=== PATIENT | male | born 2000 | race Caucasian/White ===

== ENCOUNTER 2022-01-10 17:13 | Emergency (ER) | payer BC, SELFPAY ==
[2022-01-10 17:36] VITALS: BP 130/72; PULSE 75; RESP 18; TEMP 36.9; O2SAT 100
--- NOTE | 2022-01-10 17:55 | ED.SKABFB ---
HPI - Skin/Abscess/Foreign Bdy General Chief complaint: Wound/Laceration Stated complaint: rt leg swollen Time Seen by Provider: 01/10/22 17:27 Source: patient and family (mother) Mode of arrival: ambulatory Limitations: no limitations History of Present Illness HPI narrative: 21-year-old male presents to [facility] with complaints of unspecified open wound to his right lower leg surrounded by erythema for the past week. Patient reports he has been picking at the area. Patient reports he has noticed white and yellow-colored drainage coming from the area. Patient denies fever, bodies, chills, nausea, vomiting or diarrhea. Onset (ago): week(s) (1) Location: [facility] Associated symptoms: denies other symptoms Treatments prior to arrival: bandages and attempted to drain pus at home Related Data Allergies Allergy/AdvReac Type Severity Reaction Status Date / Time amoxicillin AdvReac Mild Nausea and Verified 01/10/22 17:52 Vomiting POTASSIUM CLAVULANATE AdvReac Mild Nausea and Uncoded 01/10/22 17:52 Vomiting Review of Systems Constitutional: Constitutional: Denies chills, Denies fever(s) and Denies weakness Cardiovascular: Cardiovascular: Denies chest pain Respiratory: Respiratory: Denies cough, Denies dyspnea and Denies wheezing Gastrointestinal: Gastrointestinal: Denies abdominal pain, Denies diarrhea, Denies nausea and Denies vomiting Integumentary/Breasts: Comments: Open wound to right lower leg Neurologic: Denies dizziness PMFSH Social History Social History (Updated 01/10/22 @ 17:57 by Alia Walker, [employer]) Smoking status: Current every day smoker Tobacco type: e-cigarettes/vaping Comments At time of signature, I agree with nursing past medical, surgical, social and family history. There is no relevant family history pertinent to the presenting complaint. Exam Const: General: no acute distress Nutritional Appearance: well nourished Orientation/consciousness: patient oriented x3 Neck: Neck: normal visual inspection Resp: Effort & Inspection: normal respiratory effort Auscultation: clear to auscultation bilaterally Cardio: Rate: regular rate Rhythm: regular rhythm Skin: General skin exam: normal color Other: There is a 1 cm open wound noted to right stanley with 6 cm of surrounding erythema. There is scant amount of purulent drainage noted. There is no necrotic tissue, bruising or bleeding noted. Neuro: General: patient oriented x3 and moves all extremities Speech: normal speech Extrem: General: no clubbing, cyanosis or edema and no pedal edema Psych: Mental Status: mental status grossly normal Affect: normal affect Attitude: cooperative Thought content: Yes Normal thought content present Course Course Level of Care: Express Care Visit Vital Signs Vital signs: Vital Signs Temperature 36.9 C 01/10/22 17:36 Pulse Rate 75 01/10/22 17:36 Respiratory Rate 18 01/10/22 17:36 Blood Pressure 130/72 01/10/22 17:36 Pulse Oximetry 100 01/10/22 17:36 Temperature 36.9 C 01/10/22 17:36 Pulse Rate 75 01/10/22 17:36 Respiratory Rate 18 01/10/22 17:36 Blood Pressure 130/72 01/10/22 17:36 Pulse Oximetry 100 01/10/22 17:36 MDM - Skin/Abscess/Foreign Bdy MDM Narrative Medical decision making narrative: Lengthy discussion with patient concerning importance of avoiding expressing and picking the area of the wound. Informed patient he must take antibiotic as prescribed. Inform mother and patient importance of monitoring symptoms closely and mother agrees to proceed to the emergency room if symptoms worsen Differential Diagnosis Differential diagnosis: Likely abscess of skin or subcutaneous tissue, viral exanthem and urticaria Critical Care Time Critical Care Time Critical Care Time: No Discharge Plan Discharge Clinical Impression: Cellulitis of leg, right, Unspecified open wound, right lower leg, initial encounter Patient Disposition: Home, Self-Care Co
--- NOTE | 2022-01-10 18:27 | PC.NURSE ---
1800- triple abx oint and kerlix applied
== END 2022-01-10 18:04 | disposition home or self-care (01) ==
PROVIDERS: Emergency Provider Nurse Practitioner Family
DX: L03.115 Cellulitis of right lower limb (principal); S81.801A Unspecified open wound, right lower leg, initial encounter; X58.XXXA Exposure to other specified factors, initial encounter; F17.290 Nicotine dependence, other tobacco product, uncomplicated
CPT/HCPCS: 87070; 87147; 87181; 87186; 87205; 99213; G0463

== ENCOUNTER 2023-03-23 17:30 | Emergency (ER) | payer BC, SELFPAY ==
[2023-03-23 17:49] VITALS: BP 131/67; PULSE 72; RESP 16; TEMP 36.9; O2SAT 100
--- NOTE | 2023-03-23 17:54 | ED.SKABFB ---
HPI - Skin/Abscess/Foreign Bdy General Chief complaint: Skin/Abscess/Foreign Body Stated complaint: wasp sting Time Seen by Provider: 03/23/23 17:54 Source: patient Mode of arrival: ambulatory Limitations: no limitations History of Present Illness HPI narrative: Patient is a 22-year-old male who presents with wasp sting to left thumb and left ulnar aspect of hand yesterday. Patient states he used to have severe reactions to bee stings and is concerned. Patient states he washed hands thoroughly and has taken Benadryl with moderate relief. Patient denies any pain, drainage from wounds, stiffness or numbness or tingling of hand. Patient states it is just swollen. Related Data Allergies Allergy/AdvReac Type Severity Reaction Status Date / Time amoxicillin AdvReac Intermediate Nausea and Verified 03/23/23 17:49 Vomiting POTASSIUM CLAVULANATE AdvReac Intermediate Nausea and Uncoded 03/23/23 17:49 Vomiting Review of Systems Review of Systems: All systems reviewed & are unremarkable except as noted in HPI and below Constitutional: Constitutional: Denies body ache(s), Denies chills, Denies fatigue, Denies fever(s), Denies headache(s), Denies malaise and Denies weakness Eyes: Eyes: Denies blurry vision, Denies irritation and Denies loss of vision ENT: Denies otalgia, Denies headache(s), Denies nasal discharge, Denies sinus pain and Denies sore throat Cardiovascular: Cardiovascular: Denies chest pain, Denies irregular heart rhythm and Denies dyspnea Respiratory: Respiratory: Denies dyspnea Gastrointestinal: Gastrointestinal: Denies abdominal pain, Denies melena, Denies hematochezia, Denies diarrhea, Denies nausea and Denies vomiting Musculoskeletal: Musculoskeletal: Denies back pain, Denies myalgias and Denies arthralgias Integumentary/Breasts: Skin/Breast: Reports swelling, Denies pruritus, Reports lesions and Denies rash Neurologic: Denies headache(s), Denies loss of vision and Denies weakness Psychiatric: Psychiatric: Reports no additional psychiatric complaints Endocrine: Endocrine: Denies fatigue [facility] Social History Social History (Updated 01/10/22 @ 17:57 by Alia Walker, FREDY) Smoking status: Current every day smoker Tobacco type: e-cigarettes/vaping Comments At time of signature, agree with nursing past medical, surgical, social and family history. There is no relevant family history pertinent to the presenting complaint. Exam Const: General: cooperative, healthy appearing, comfortable, no acute distress and well nourished Nutritional Appearance: well nourished Orientation/consciousness: patient oriented x3 Limitations: no limitations HENMT: Head: normal to inspection, normocephalic and atraumatic Ears: hearing grossly normal bilaterally and external ears normal Face/Nose/Sinus: Normal external nose present, normal facial exam and face symmetric Face and sinus: normal facial exam and face symmetric Mouth: Yes lip normal Eyes: General: appearance normal, both eyes and all related structures Alignment and Position: alignment normal and position normal Periorbital: periorbital findings normal Eyelids: eyelids normal Pupils: Equal, round and reactive pupils present EOM: EOMs intact bilaterally Neck: Neck: normal visual inspection, full ROM and supple Chest: Chest palpation & inspection: normal inspection of the chest Resp: Effort & Inspection: normal respiratory effort and able to speak in complete sentences Auscultation: clear to auscultation bilaterally Cardio: Rate: regular rate Rhythm: regular rhythm Heart sounds: S1 normal heart sound present and S2 normal heart sound present GI: Inspection: normal to inspection Skin: General skin exam: normal color and no rashes or lesions noted Neuro: General: patient oriented x3 and moves all extremities Cranial nerves: Yes Equal, round and reactive pupils present Speech: normal speech Gait exam (Neuro): Normal gait present Extrem: Gener
== END 2023-03-23 18:05 | disposition home or self-care (01) ==
PROVIDERS: Emergency Provider Nurse Practitioner Family
DX: T63.461A Toxic effect of venom of wasps, accidental (unintentional), initial encounter (principal); L03.114 Cellulitis of left upper limb; F17.290 Nicotine dependence, other tobacco product, uncomplicated
CPT/HCPCS: 99213; G0463

== ENCOUNTER 2024-04-27 22:58 | Emergency (ER) | payer BC, SELFPAY ==
[2024-04-27 23:05] VITALS: BP 135/70; PULSE 73; RESP 18; TEMP 36.9; O2SAT 100
--- NOTE | 2024-04-27 23:22 | ED.WOUNDLAC ---
HPI - Wound/Laceration General Chief Complaint: Wound/Laceration Stated Complaint: laceration Time Seen by Provider: 04/27/24 23:05 Source: patient Mode of arrival: ambulatory Limitations: no limitations History of Present Illness HPI narrative: Patient is a 23-year-old male who presents the ED with report of a laceration to his left thigh. Patient reports he was using a sawzall to cut an object when the saw slipped and patient sustained a small laceration to his L inner thigh. Denies any other injuries. Denies numbness. Tetanus unknown. Related Data Allergies Allergy/AdvReac Type Severity Reaction Status Date / Time amoxicillin AdvReac Intermediate Nausea and Verified 03/23/23 17:49 Vomiting POTASSIUM CLAVULANATE AdvReac Intermediate Nausea and Uncoded 03/23/23 17:49 Vomiting Review of Systems Review of Systems: CONSTITUTIONAL: Denies fever, chills, or sweats. SKIN: See HPI MUSCULOSKELETAL: Denies back pain, extremity pain, myalgia. All systems reviewed & are unremarkable except as noted in HPI and below PMFSH Social History Social History Smoking status: Current every day smoker Tobacco type: e-cigarettes/vaping Exam Narrative: GENERAL: Well appearing, obese with BMI of 33.7, non-toxic, in no acute distress. HEAD: Normocephalic, atraumatic. RESPIRATORY: Airway patent, respirations nonlabored CARDIOVASCULAR: Regular rate and rhythm MUSCULOSKELETAL: Moves all extremities. No gross deformities. SKIN: Warm, dry, normal color. Small linear 1 cm laceration to left distal medial thigh, minimal active bleeding. Sensation intact. NEURO: A&O X3. Speech clear. PSYCHIATRIC: Appropriate mood and affect. Normal interaction. Course Vital Signs Vital signs: Vital Signs Temperature 98.4 F 04/27/24 23:05 Pulse Rate 73 04/27/24 23:05 Respiratory Rate 18 04/27/24 23:05 Blood Pressure 135/70 04/27/24 23:05 Pulse Oximetry 100 04/27/24 23:05 Temperature 98.4 F 04/27/24 23:05 Pulse Rate 73 04/27/24 23:05 Respiratory Rate 18 04/27/24 23:05 Blood Pressure 135/70 04/27/24 23:05 Pulse Oximetry 100 04/27/24 23:05 Procedures Laceration Laceration 1: Date: 04/27/24 Time: 23:40 Site: lower extremity Side (If applicable): left Size (cm): 1.5 Description: linear Depth: simple, single layer Local Anesthetic: lidocaine 1% Amount of anesthesia used (mL): 4 Pre-repair: wound explored and irrigated ====== Skin Level ====== Skin layer closed with: nylon Size (cm): 4-0 Number of sutures: 3 Technique: simple, interrupted ====== Subcutaneous Layer ====== ====== Muscle Layer ====== ====== Tendon Layer ====== MDM - Wound/Laceration MDM Narrative Medical decision making narrative: Laceration repaired without complications. Tetanus updated. Patient will be discharged. Given wound care instructions and reasons to return. D/C in stable condition. Medical Records Attestation: I reviewed the patient's medical records. Discharge Plan Discharge Clinical Impression: Laceration of left thigh Qualifiers: Encounter type: initial encounter Qualified Code(s): S71.112A - Laceration without foreign body, left thigh, initial encounter Patient Disposition: Home, Self-Care Condition: Stable Instructions: Antibiotic Form, Care For Your Stitches (ED), Laceration (ED) Additional Instructions: Return to the ED or visit an urgent care or your PCP for follow-up and wound check/suture removal in 7-10 days. Keep the wound dry for 24 hours. You may remove the bandage after 24 hours and wash with simple soap and water, but do not scrub. Return to the ED if you experience uncontrolled bleeding, fever, chills, pus-like drainage, or redness/swelling/warmth surrounding the wound, as these could be signs o
[2024-04-27] MEDS: TETANUS,DIPHTHERIA,AC PERTUSSIS ADULT (0.5 ML) BOOSTRIX IM (23:48)
== END 2024-04-27 23:54 | disposition home or self-care (01) ==
PROVIDERS: Emergency Provider Physician Assistant
DX: S71.112A Laceration without foreign body, left thigh, initial encounter (principal); F17.290 Nicotine dependence, other tobacco product, uncomplicated; W29.8XXA Contact with other powered hand tools and household machinery, initial encounter; Z23 Encounter for immunization
CPT/HCPCS: 12001; 90471; 90715; 99282

== ENCOUNTER 2024-08-07 08:46 | Emergency (ER) | payer BC, SELFPAY ==
[2024-08-07 09:12] VITALS: BP 119/72; PULSE 83; RESP 18; TEMP 36.4; O2SAT 98
--- NOTE | 2024-08-07 09:33 | ED.GENADULT ---
HPI - General Adult General Chief complaint: Upper Respiratory Infection Stated complaint: coughing/headache/cold flashes Time Seen by Provider: 08/07/24 09:33 Source: patient Mode of arrival: ambulatory Limitations: no limitations History of Present Illness HPI narrative: 23-year-old male patient presents to [facility] with complaints of coughing headache and hot flashes for the past 2 days. Patient states he has just been feeling very fatigued. Patient states that he did come in contact with his sister who was diagnosed with pneumonia. Patient states he does vape. Denies chest pain or shortness of breath but states he has had a cough as well as some sinus drainage. Patient states has mild sore throat as well. Related Data Allergies Allergy/AdvReac Type Severity Reaction Status Date / Time amoxicillin AdvReac Intermediate Nausea and Verified 08/07/24 09:24 Vomiting POTASSIUM CLAVULANATE AdvReac Intermediate Nausea and Uncoded 03/23/23 17:49 Vomiting Review of Systems Review of Systems: CONSTITUTIONAL: Positive fever, chills, and sweats. EYES: Denies visual changes, redness, or discharge. ENT: positive rhinorrhea, congestion, sore throat, denies otalgia. CARDIOVASCULAR: Denies chest pain, palpitations, or edema. RESPIRATORY: positive cough , denies dyspnea. GASTROINTESTINAL: Denies abdominal pain, nausea, vomiting, or diarrhea. GENITOURINARY: Denies dysuria or hematuria. SKIN: Denies rash or itching. MUSCULOSKELETAL: Denies back pain, joint pain, or myalgia. NEUROLOGIC: positive headache, denies numbness, or weakness. PSYCHIATRIC: Denies anxiety or depression. PMFSH Social History Social History Smoking status: Current every day smoker Tobacco type: e-cigarettes/vaping Comments At the time of my signature I agree with nursing past medical history, surgical, social, and family history. There is no relevant family history pertinent to the presenting complaint. Exam Narrative: GENERAL: Well-appearing, well-nourished, and in no acute distress. HEAD: Normocephalic, atraumatic. EYES: PERRLA and EOMI. ENT: Nares with erythema edema noted bilateral, no rhinorrhea or epistaxis. Mucous membranes moist. posterior pharynx with postnasal drip present and erythema. No tonsillar enlargement, no exudates or lesions present. NECK: Supple. No lymphadenopathy CHEST: Clear to auscultation. No respiratory distress. Patient able talk clear complete sentences. HEART: Regular rate and rhythm. No murmur heard. Normal peripheral pulses. ABDOMEN: Soft, nontender, nondistended, normal active bowel sounds. EXTREMITIES: Normal range of motion. No edema. SKIN: Warm, dry, no rash. NEURO: No focal deficits. Alert and oriented x3. Course Course Level of Care: Express Care Visit Reevaluation(s) Reevaluation #1: Re-evaluated patient notified him that his swabs today are negative. We will send the throat swab to the lab for culture but at this time on everything is pointing to a viral infection. Discussed with patient that I can offer him a chest x-ray since he was around people with pneumonia to rule that out but I am not hearing any crackles in the lungs the lungs sound clear. Patient refused the chest x-ray at this time. Discussed with patient continue taking [id number] medications and I will prescribe him some Tessalon Perles and patient is in agreement with the plan of care. Date: 08/07/24 Time: 10:08 Vital Signs Vital signs: Vital Signs Temperature 36.4 C L 08/07/24 09:12 Pulse Rate 83 08/07/24 09:12 Respiratory Rate 18 08/07/24 09:12 Blood Pressure 119/72 08/07/24 09:12 Pulse Oximetry 98 08/07/24 09:12 Oxygen Delivery Room Air 08/07/24 09:12 Temperature 36.4 C L 08/07/24 09:12 Pulse Rate 83 08/07/24 09:12 Respiratory Rate 18 08/07/24 09:12 Blood Pressure 119/72 08/07/24 09:12 Pulse Oximetry 98 08/07/24 09:12 Oxygen Delivery Room Air 08/07/24 09:12 Vital signs reviewed. Medical Decision Making MDM Narrative Medical decision making narrative: Plan care patient is to swab him today for influenza, COVID and strep since he has only had symptoms for 2 days. The lungs are clear on auscultation but if the swabs are negative we may consider doing a chest x-ray since he has been in contact with those with positive pneumonia. I will reassess patient once he has resulted. Differential Diagnosis Differential Diagnosis: Differential diagnosis: Allergic rhinitis, chronic sinusitis, tonsillitis, acute sinusitis, infectious mononucleosis, seasonal influenza, pertussis, diphtheria, meningococcal disease, viral syndrome, viral bronchitis, RSV, COVID-19 Vital Signs Vital Signs: Vital Signs Temperature 36.4 C L 08/07/24 09:12 Pulse Rate 83 08/07/24 09:12 Respiratory Rate 18 08/07/24 09:12 Blood Pressure 119/72 08/07/24 09:12 Pulse Oximetry 98 08/07/24 09:12 Oxygen Delivery Room Air 08/07/24 09:12 Temperature 36.4 C L 08/07/24 09:12 Pulse Rate 83 08/07/24 09:12 Respiratory Rate 18 08/07/24 09:12 Blood Pressure 119/72 08/07/24 09:12 Pulse Oximetry 98 08/07/24 09:12 Oxygen Delivery Room Air 08/07/24 09:12 Lab Data Labs: Lab Results 08/07/24 Range/Units 09:57 POC Influenza A Ag Negative (Negative) POC Influenza B Ag Negative (Negative) POC SARS CoV-2 Ag Negative (Negative) POC Grp A Strep Screen Negative (Negative) Critical Care Time Critical Care Time Critical Care Time: No Discharge Plan Discharge Clinical Impression: Viral URI with cough Patient Disposition: Home, Self-Care Condition: Stable Instructions: Antibiotic Form, Viral Syndrome (ED) Additional Instructions: Viral illness may last between 7-12days; antibiotic is NOT recommended at this time. Recommend antihistamine such as Benadryl at night time and Claritin/Zyrtec/Breonna during the day Cough syrup may cause drowsiness; avoid driving or take it at night time. Also, recommend symptomatic treatment includes: rest, fluids, and increase humidity of the air at home. Recommend Acetaminophen or nonsteroidal anti-inflammatory agents (NSAIDs) as directed in the bottle to reduce fever and/pain/headache. Avoid smoking/second-hand smoke. Limit visits to areas with large crowds. Please schedule a follow-up visit with your personal physician for further evaluation and treatment within 3-5days. Including recheck and discussion of your blood pressure. If your symptoms persist, change or worsen significantly before you can contact your personal physician then please, without delay, go to the emergency department for further evaluation. Prescriptions: New benzonatate 200 mg capsule 200 mg PO TID PRN (Reason: cough) 10 Days Qty: 30 0RF Follow-up/Referrals: PHYSICIAN,DAIRY LAB TECHNICIAN [Primary Care Provider] - Time of Disposition: 10:10
[2024-08-07 09:58] LABS: EDCOVIDSCREEN Negative (Negative)
[2024-08-07 09:59] LABS: EDINFLUASCREEN Negative (Negative); EDINFLUBSCREEN Negative (Negative); EDSTREPNEGPOS1 Negative (Negative)
== END 2024-08-07 10:14 | disposition home or self-care (01) ==
PROVIDERS: Emergency Provider Nurse Practitioner Family
DX: J06.9 Acute upper respiratory infection, unspecified (principal); R05.9 Cough, unspecified; Z20.822 Contact with and (suspected) exposure to COVID-19; F17.290 Nicotine dependence, other tobacco product, uncomplicated
CPT/HCPCS: 87081; 87426; 87804; 87880; 99213; G0463

== ENCOUNTER 2024-08-07 20:01 | Emergency (ER) | payer BC, SELFPAY ==
--- NOTE | ~2024-08-07 | XR_ITS ---
EXAMINATION: XR chest 2V DATE: 08/07/2024 22:55 INDICATION: Cough. Shortness of breath. TECHNIQUE: Frontal and lateral views of the chest were obtained. COMPARISON: Chest 2 views 09/10/2007 FINDINGS: There are airspace opacities in left upper lobe, consistent with pneumonia. No pleural effu osbaldo or pneumothorax. The heart size is normal. There is mild chronic anterior wedging of multiple ve rtebral bodies. IMPRESSION: 1. Left upper lobe pneumonia. Reviewed, dictated and finalized at location A. [employer]
[2024-08-07 20:09] VITALS: BP 140/80; PULSE 91; RESP 16; TEMP 37.6; O2SAT 99
[2024-08-07 21:55] VITALS: O2SAT 99
[2024-08-07] MEDS: KETOROLAC (*BKC) 60 MG/2 ML VIAL IM (22:58)
[2024-08-07] MEDS: methylPREDNISolone SOD SUCC 125 MG VIAL IM (22:59)
[2024-08-07 23:02] VITALS: BP 122/73; PULSE 79; RESP 20; TEMP 37.1; O2SAT 98
--- NOTE | 2024-08-07 23:34 | ED.URI ---
HPI - URI/Sore Throat General Chief Complaint: Upper Respiratory Infection Stated Complaint: pneumonia Time Seen by Provider: 08/07/24 21:40 History of Present Illness HPI Narrative: Patient is a 23-year-old male who presents to the ER with complaints of sore throat and cough for 2 days. He reports he has been coughing so hard that he has had emesis. Patient denies fevers but has been ?warm to the touch.?He was seen at urgent care earlier today and refused chest x-ray so they put him on cough medicine and advised him to take Claritin. Patient denies chest pain, shortness of breath, abdominal pain. Related Data Allergies Allergy/AdvReac Type Severity Reaction Status Date / Time amoxicillin AdvReac Intermediate Nausea and Verified 08/07/24 21:52 Vomiting POTASSIUM CLAVULANATE AdvReac Intermediate Nausea and Uncoded 03/23/23 17:49 Vomiting Review of Systems Review of Systems: All systems reviewed & are unremarkable except as noted in HPI and below PMFSH Social History Social History Smoking status: Current every day smoker Tobacco type: e-cigarettes/vaping Exam Narrative: GENERAL: Well appearing, well-nourished, non-toxic, in no acute distress. HEAD: Normocephalic, atraumatic. NECK: Supple. + Cervical adenopathy, no masses. RESPIRATORY: Airway patent, respirations nonlabored. Clear to auscultation bilaterally, no rales, rhonchi, wheezing. CARDIOVASCULAR: Regular rate and rhythm without murmurs, rubs, or gallops. Peripheral pulses 2+ and equal bilaterally. ABDOMINAL: Soft, nontender, nondistended, no hepatosplenomegaly. Normoactive BS. MUSCULOSKELETAL: Moves all extremities. Strength/ROM intact without gross deformities. SKIN: Warm, dry, normal color. No rashes. NEURO: A&O X3. Speech clear. Cranial nerves II-XII grossly intact. Steady gait. No ataxic movements. PSYCHIATRIC: Appropriate mood and affect. Normal interaction. Course Vital Signs Vital signs: Vital Signs Temperature 37.6 C H 08/07/24 20:09 Pulse Rate 91 08/07/24 20:09 Respiratory Rate 16 08/07/24 20:09 Blood Pressure 140/80 08/07/24 20:09 Pulse Oximetry 99 08/07/24 20:09 Temperature 37.1 C 08/07/24 23:02 Pulse Rate 79 08/07/24 23:02 Respiratory Rate 20 08/07/24 23:02 Blood Pressure 122/73 08/07/24 23:02 Pulse Oximetry 98 08/07/24 23:02 Oxygen Delivery Room Air 08/07/24 21:55 MDM - URI/Sore Throat MDM Narrative Medical decision making narrative: Patient is a 23-year-old male who presents to the ER with complaints of sore throat and cough for 2 days. He reports he has been coughing so hard that he has had emesis. Patient denies fevers but has been ?warm to the touch.?He was seen at urgent care earlier today and refused chest x-ray so they put him on cough medicine and advised him to take Claritin. Patient denies chest pain, shortness of breath, abdominal pain. Since patient's daughter was diagnosed with walking pneumonia today and patient similar symptoms will treat patient with a Sebastian. Will also send patient home with Sameer carty, Albuterol inhaler, steroid pack to help treat symptoms. Patient verbalized understanding of plan and is in agreement with discharge home. Differential Diagnosis Differential diagnosis: Likely upper respiratory infection, bronchitis, influenza, pharyngitis and other (mycoplasma pneumonia) Lab Data Labs: Lab Results 08/08/24 Range/Units 00:31 Monoscreen Pending Discharge Plan Discharge Clinical Impression: Mycoplasma pneumonia, Upper respiratory infection Patient Disposition: Home, Self-Care Condition: Stable Instructions: Antibiotic Form, Bacterial Pneumonia (ED) Additional Instructions: Please take all medications as prescribed. Return to the ER with any worsening symptoms including shortness of breath or chest pain. Please follow-up with your primary care provider in the next 2-3 days. Prescriptions: New azithromycin [Zithromax Z-Srikanth] 250 mg tablet See Rx Instructions .ROUTE .COMPLEX Qty: 6 0RF Rx Instructions: For 250 mg dose pack: take 500 mg today (day 1), then 250 mg for 4 days (days 2-5) albuterol sulfate 90 mcg/actuation HFA aerosol inhaler 1 inh inhalation QID PRN (Reason: shortness of breath or wheezing) Qty: 6.7 0RF benzonatate 100 mg capsule 100 mg PO TID PRN (Reason: cough) Qty: 14 0RF methylprednisolone [Medrol (Srikanth)] 4 mg tablets,dose pack See Rx Instructions .ROUTE .COMPLEX Qty: 21 0RF Rx Instructions: for 6 days No Action benzonatate 200 mg capsule 200 mg PO TID PRN (Reason: cough) 10 Days Qty: 30 0RF Follow-up/Referrals: PHYSICIAN,PLAYGROUND EQUIPMENT ERECTOR [Primary Care Provider] - Time of Disposition: 00:46
[2024-08-07] MEDS: IPRATROPIUM 0.5 MG/ALBUTEROL SULFATE 2.5 MG AMPUL.NEB 3 ML INHALATION (23:48)
[2024-08-08] MEDS: AZITHROMYCIN 250 MG TABLET 500 MG PO (01:11)
== END 2024-08-08 01:15 | disposition home or self-care (01) ==
PROVIDERS: Emergency Provider Registered Nurse
DX: J15.7 Pneumonia due to Mycoplasma pneumoniae (principal); J06.9 Acute upper respiratory infection, unspecified; F17.290 Nicotine dependence, other tobacco product, uncomplicated
CPT/HCPCS: 36415; 71046; 94640; 96372; 99284; A9270; J1885; J2919

== ENCOUNTER 2025-01-26 09:02 | Emergency (ER) | payer OTHER, BC, SELFPAY ==
--- NOTE | ~2025-01-26 | XR_ITS ---
Left Shoulder Technique: AP and axillary views were obtained. Clinical History: Pain Findings: No fracture or dislocation is seen. Osseous alignment is anatomic. The glenohumeral and acr omioclavicular joint spaces are preserved. Soft tissues are unremarkable. Impression: Unremarkable left shoulder radiographs. Reviewed, dictated and finalized at [facility]. Impression: Unremarkable left shoulder radiographs.
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
--- NOTE | ~2025-01-26 | XR_ITS ---
AP and lateral views of the left hip Clinical history: Pain Findings: No acute fracture or dislocation is seen. Osseous alignment is anatomic. Left hip joint int act. Soft tissues are unremarkable. Impression: No significant abnormality is seen. Reviewed, dictated and finalized at location . Impression: No significant abnormality is seen.
[2025-01-26 09:14] VITALS: BP 102/50; PULSE 64; RESP 18; TEMP 36.1; O2SAT 100
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
[2025-01-26 09:24] VITALS: BP 120/80
[2025-01-26 11:16] VITALS: BP 126/74; PULSE 65; RESP 20; TEMP 36.3; O2SAT 100
== END 2025-01-26 11:22 | disposition home or self-care (01) ==
PROVIDERS: Emergency Provider Nurse Practitioner Family; Referring Provider Emergency Medicine
DX: S70.02XA Contusion of left hip, initial encounter (principal); S40.012A Contusion of left shoulder, initial encounter; S20.212A Contusion of left front wall of thorax, initial encounter; V28.49XA Other motorcycle driver injured in noncollision transport accident in traffic accident, initial encounter; F17.290 Nicotine dependence, other tobacco product, uncomplicated
CPT/HCPCS: 71101; 73030; 73502; 99214; G0463